=== PATIENT | female | born 2000 | race Caucasian/White ===

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

== ENCOUNTER 2022-01-24 08:50 | Emergency (ER) | payer MEDICAID ==
[~2022-01-24] VITALS: Ht 165.1 cm; Wt 70.3 kg
[~2022-01-24 08:50] MED LIST: ONDA-8 TL
[2022-01-24 09:52] VITALS: BP_SYST 138
[2022-01-24] MEDS ORDERED: HALOPERIDOL LACTATE 5 MG/ML VIAL IM ONE (14:45)
[2022-01-24 15:35] LABS: BASOPHILS % (AUTO) 0.1 % (0.0-2.0); HEMATOCRIT 38.1 % (36-48); HEMOGLOBIN 13.1 g/dL (12.0-16.0); LYMPHOCYTES # (AUTO) 0.4 K/uL (1.0-5.5); LYMPHOCYTES % (AUTO) 2.5 % (20.5-51.5); MEAN CORPUSCULAR HEMOGLOBIN 33 pg (27-31); MEAN CORPUSCULAR HGB CONC 34 % (32-36); MEAN CORPUSCULAR VOLUME 95 fL (79.0-98.0); MONOCYTES # (AUTO) 0.4 K/uL (0.0-1.0); MONOCYTES % (AUTO) 2.6 % (1.7-9.3); NEUTROPHILS # (AUTO) 14.1 K/uL (1.8-7.7); NEUTROPHILS % (AUTO) 94.8 % (40.0-70.0); PLATELET COUNT (AUTO) 270 K/uL (130-430); RED BLOOD CELL COUNT(AUTO) 4.03 MIL/uL (4.2-6.2); RED CELL DISTRIBUTION WIDTH 13.3 % (9.0-15.0); WHITE BLOOD COUNT (AUTO) 14.9 K/uL (4.5-11.0)
[2022-01-24 15:50] LABS: CALCIUM 9.3 mg/dL (8.4-11.0); CREATININE 0.78 mg/dL (0.55-1.30); POTASSIUM 3.8 mmol/L (3.5-5.1)
[2022-01-24 15:59] LABS: TOTAL BILIRUBIN 0.6 mg/dL (0.0-1.0)
[2022-01-24 16:00] LABS: ALBUMIN 3.7 g/dL (3.4-4.8)
[2022-01-24] MEDS ORDERED: METO-290 PO (17:12)
[2022-01-24] MEDS ORDERED: OMEP40CA20 PO (17:13)
--- NOTE | 2022-01-24 18:00 | NUR ---
Recieved Pt in [facility] [place] R/T marijuana overusage. Pt is aaox4, tired in appearance with red eyes and heavy eye lids. No signs of acute distress. Breathing is unlabored and even at this time.
--- NOTE | 2022-01-24 18:15 | NUR ---
Pt is with BS for MSE.
--- NOTE | 2022-01-24 19:30 | NUR ---
Patient given written and verbal discharge instructions and verbalizes understanding. ER MD discussed with patient the results and treatment provided. Patient in stable condition. ID arm band removed. Rx of Reglan and Omeprazole given. Patient educated cyclonic vomiting syndrome. Opportunity for questions provided and answered. Medication side effect fact sheet provided.
[2022-01-24 20:13] VITALS: BP_SYST 138
== END 2022-01-24 20:13 | disposition home or self-care (01) ==
LOC: SED 08:50
DX: R11.15 Cyclical vomiting syndrome unrelated to migraine (principal); Z79.899 Other long term (current) drug therapy
CPT/HCPCS: 99284; 74176; 80053; 82150; 84703; 83690; 85025; 86140; 36415; 76376; 96372; 83605; J1630

== ENCOUNTER 2022-03-10 21:55 | Inpatient (IN) | payer MEDICAID ==
[~2022-03-10] VITALS: Ht 165.1 cm; Wt 74.8 kg
[~2022-03-10 21:55] MED LIST changes: +METO-290 PO; +OMEP40CA20 PO
[2022-03-10 22:25] VITALS: BP_SYST 141
[2022-03-10] MEDS ORDERED: NACL 0.9% 1,000 ML IV ONE (22:45)
[2022-03-10] MEDS ORDERED: ONDANSETRON HCL 4 MG/2 ML VIAL IVP ONE (22:45)
[2022-03-10 23:45] LABS: BILIRUBIN,URINE NEGATIVE (NEGATIVE); BLOOD, URINE NEGATIVE (NEGATIVE); CLARITY/URINE CLEAR (CLEAR); COLOR,URINE YELLOW (YELLOW); GLUCOSE,URINE NEGATIVE (NEGATIVE); KETONES,URINE 2+ (NEGATIVE); LEUKOCYTE ESTERASE ,URINE NEGATIVE (NEGATIVE); NITRITE, URINE NEGATIVE (NEGATIVE); PH,URINE 8.5 (5.0-8.0); PROTEIN URINE 1+ (NEGATIVE)
[2022-03-11 00:03] LABS: BACTERIA,URINE RARE /HPF (None Seen); RBC,URINE NONE SEEN /HPF (0-3); WBC,URINE 0-3 /HPF (0-3)
[2022-03-11 00:04] LABS: MUCUS,URINE None Seen /LPF (None Seen)
[2022-03-11 00:07] LABS: BASOPHILS % (AUTO) 0.1 % (0.0-2.0); HEMATOCRIT 38.1 % (36-48); HEMOGLOBIN 13.3 g/dL (12.0-16.0); LYMPHOCYTES # (AUTO) 0.4 K/uL (1.0-5.5); LYMPHOCYTES % (AUTO) 2.6 % (20.5-51.5); MEAN CORPUSCULAR HEMOGLOBIN 33 pg (27-31); MEAN CORPUSCULAR HGB CONC 35 % (32-36); MEAN CORPUSCULAR VOLUME 94 fL (79.0-98.0); MONOCYTES # (AUTO) 0.2 K/uL (0.0-1.0); MONOCYTES % (AUTO) 1.8 % (1.7-9.3); NEUTROPHILS # (AUTO) 13.5 K/uL (1.8-7.7); NEUTROPHILS % (AUTO) 95.5 % (40.0-70.0); PLATELET COUNT (AUTO) 243 K/uL (130-430); RED BLOOD CELL COUNT(AUTO) 4.07 MIL/uL (4.2-6.2); RED CELL DISTRIBUTION WIDTH 13.1 % (9.0-15.0); WHITE BLOOD COUNT (AUTO) 14.1 K/uL (4.5-11.0)
[2022-03-11 00:19] LABS: CALCIUM 9.5 mg/dL (8.4-11.0); CREATININE 0.83 mg/dL (0.55-1.30); POTASSIUM 3.9 mmol/L (3.5-5.1)
[2022-03-11 00:25] LABS: ALBUMIN 4.5 g/dL (3.4-4.8); TOTAL BILIRUBIN 0.6 mg/dL (0.0-1.0)
[2022-03-11] MEDS ORDERED: ONDA-8 TL (01:29)
[2022-03-11] MEDS ORDERED: ONDANSETRON HCL 4 MG/2 ML VIAL IVP ONE (01:45)
[2022-03-11] MEDS ORDERED: NACL 0.9% 1,000 ML IV ONE (01:45)
--- NOTE | 2022-03-11 01:45 | NUR ---
recieved pt in bed c/0 cramping/ abdominal pain and vomitting. pt says she had diarrhea earlier vitals done.iv started, medicated as ordered.
--- NOTE | 2022-03-11 01:50 | NUR ---
covid test in the lab.IVF in progress .vitals are within normal range
--- NOTE | 2022-03-11 01:55 | NUR ---
medicated with zofran 4mg iv given for nausea. IVF in progress
[2022-03-11] MEDS ORDERED: ONDANSETRON HCL 4 MG/2 ML VIAL IVP PRN (02:00)
[2022-03-11] MEDS: D5/0.45 NS 1,000 ML IV SCH ×3 (02:25→18:11)
--- NOTE | 2022-03-11 06:52 | NUR ---
Admit bed requested Patient will be admitted to care of . Admitted to med surg unit. Diagnosis Gastroenteritis and dehydration Inpatient Yes Observation Yes Orientation concerns or request close to nursing station NO Covid Status NEG On vent or bipap NO Isolation requirements N/A Needs a sitter NO From Home Yes Requires Dialysis No Med Rec Completed Yes
--- NOTE | 2022-03-11 07:45 | NUR ---
SBAR GIVEN BEDSIDE TO [facility] ROOM 108C. PT AAOX4. VSS. ABLE TO AMBULATE TO BED. DENIES N/V AT THIS TIME. ALL QUESTIONS ANSWERED. END OF CARE.
--- NOTE | 2022-03-11 07:52 | NUR ---
CONSULTATION PAGED REASON FOR CONSULTATION GASTROENTITIS WAS CONSULT CALED?Y PERSON WHO WAS NOTIFIED:DELPHINE CONSULTING PHYSICIAN:TAWANDA SCHNEIDER (VIVEK DESOUZA PAID SEARCH MANAGER) WORKFORCE CONSULTANT SPECIALTY:GI WORKFORCE CONSULTANT PHONE NUMBER:[phone] REQUESTING PHYSICIAN:DUANE HAIRSTON
[2022-03-11 09:29] VITALS: BP_SYST 116
[2022-03-11 12:00] VITALS: BP_SYST 110
[2022-03-11 16:00] VITALS: BP_SYST 112
[2022-03-11 20:00] VITALS: BP_SYST 118
[2022-03-12] VITALS: BP_SYST 120
[2022-03-12] MEDS: D5/0.45 NS 1,000 ML IV SCH ×3 (02:00→18:00)
[2022-03-12 08:00] VITALS: BP_SYST 98
--- NOTE | 2022-03-12 08:30 | NUR ---
Report received from day shift RN for continuity of care. Patient in stable condition. No distress noted.
[2022-03-12 12:00] VITALS: BP_SYST 120
--- NOTE | 2022-03-12 12:33 | NUR ---
call placed for Dr. Zaldivar regarding orders and updates.
--- NOTE | 2022-03-12 13:12 | NUR ---
Spoke with Dr. Zaldivar regarding Dr. Redmond's recommendations. New orders noted and carried out.
[2022-03-12] MEDS ORDERED: MORPHINE 2 MG/ML INJ. SYRINGE ONE (13:44)
[2022-03-12] MEDS ORDERED: MORPHINE 2 MG/ML INJ. SYRINGE IVP PRN (13:45)
[2022-03-12] MEDS ORDERED: NALOXONE HCL 0.4 MG/ML AMP (NARCAN) IVP PRN ×2 (13:45→17:00)
--- NOTE | 2022-03-12 14:02 | NUR ---
Dr. Zaldivar made aware of patient having three episodes of intermittent vomiting in restroom and in bed. Patient feeling pain and nausea. Patient was observed to say, "I'm not feeling well!" New orders noted and carried out.
[2022-03-12 16:00] VITALS: BP_SYST 118
[2022-03-12] MEDS ORDERED: METOCLOPRAMIDE HCL 10 MG/2 ML VIAL IVP PRN (17:00)
[2022-03-12] MEDS ORDERED: MORPHINE 2 MG/ML INJ. SYRINGE IVP ONE (17:15)
[2022-03-12] MEDS ORDERED: cefTRIAXone 1 GM in D5W 50 ML IV SCH (18:00)
[2022-03-12 20:00] VITALS: BP_SYST 106
--- NOTE | 2022-03-12 20:04 | NUR ---
Report given to night patrol inspector RN for continuity of care. Patient in stable condition. No distress indicated.
[2022-03-13] VITALS: BP_SYST 116
[2022-03-13] MEDS: D5/0.45 NS 1,000 ML IV SCH ×2 (01:42→10:40)
[2022-03-13 08:00] VITALS: BP_SYST 108
[2022-03-13 12:09] VITALS: BP_SYST 109
[2022-03-13 14:24] VITALS: BP_SYST 120
--- NOTE | 2022-03-13 14:50 | NUR ---
Pt discharged to home. Education given. Pt verbalized understanding. stable at discharge.
[2022-03-13 15:46] VITALS: BP_SYST 117
== END 2022-03-13 15:30 | disposition home or self-care (01) | DRG 241 ==
LOC: SED 21:55 → SMU 03-11 01:41
PROVIDERS: ADMIT Internal Medicine; ATTEND Internal Medicine
DX: K29.70 Gastritis, unspecified, without bleeding (principal); R65.10 Systemic inflammatory response syndrome (SIRS) of non-infectious origin without acute organ dysfunction; K52.9 Noninfective gastroenteritis and colitis, unspecified; F12.129 Cannabis abuse with intoxication, unspecified; Z20.822 Contact with and (suspected) exposure to COVID-19; K31.84 Gastroparesis
CPT/HCPCS: 36415; 76376; 80053; 81000; 83605; 85025; 87040; 96374; 96376; 99285; J0696; J2270; J2405; J2765; J7060

== ENCOUNTER 2023-01-22 13:48 | Emergency (ER) | payer BC, MEDICAID ==
[~2023-01-22] VITALS: Ht 165.1 cm; Wt 70.3 kg
[2023-01-22 13:56] VITALS: BP_SYST 140; PULSE 96; RESP 18; TEMP 98.3; O2SAT 98
--- NOTE | 2023-01-22 15:15 | NUR ---
Pt brought by self, A&Ox4, pt presents to ER with R earache , L head and neck pain x 2 days, skin pink and warm, cap refill <3, VSS, respirations even and unlabored.
== END 2023-01-22 16:23 | disposition left against medical advice (07) ==
LOC: SED 13:48
DX: H92.01 Otalgia, right ear (principal); R51.9 Headache, unspecified; M54.2 Cervicalgia; Z53.21 Procedure and treatment not carried out due to patient leaving prior to being seen by health care provider
CPT/HCPCS: 81025; 99281

== ENCOUNTER 2024-03-05 21:58 | Emergency (ER) | payer BC ==
[~2024-03-05] VITALS: Ht 165.1 cm; Wt 56.7 kg
[2024-03-05 22:14] VITALS: BP_SYST 139; PULSE 91; RESP 16; TEMP 98.5; O2SAT 100
[2024-03-05] MEDS: NACL 0.9% 1,000 ML IV ONE (23:02)
[2024-03-05 23:18] LABS: BASOPHILS # (AUTO) 0.1 K/uL (0.0-0.2); BASOPHILS % (AUTO) 0.3 % (0.0-2.0); LYMPHOCYTES # (AUTO) 0.6 K/uL (1.0-5.5); LYMPHOCYTES % (AUTO) 2.4 % (20.5-51.5); MEAN CORPUSCULAR HEMOGLOBIN 32 pg (27-31); MEAN CORPUSCULAR HGB CONC 35 % (32-36); MEAN CORPUSCULAR VOLUME 92 fL (79.0-98.0); MONOCYTES # (AUTO) 0.4 K/uL (0.0-1.0); MONOCYTES % (AUTO) 1.7 % (1.7-9.3); NEUTROPHILS # (AUTO) 22.3 K/uL (1.8-7.7); NEUTROPHILS % (AUTO) 95.6 % (40.0-70.0); PLATELET COUNT (AUTO) 383 K/uL (130-430); RED BLOOD CELL COUNT(AUTO) 4.36 MIL/uL (4.2-6.2); RED CELL DISTRIBUTION WIDTH 12.5 % (9.0-15.0); WHITE BLOOD COUNT (AUTO) 23.3 K/uL (4.8-10.8)
[2024-03-05] MEDS: HALOPERIDOL LACTATE 5 MG/ML VIAL IVP ONE (23:21)
[2024-03-05] MEDS: ONDANSETRON HCL 4 MG/2 ML VIAL IVP ONE (23:21)
[2024-03-05 23:38] LABS: ALBUMIN 4.9 g/dL (3.4-4.8); BILIRUBIN,DIRECT 0.1 mg/dL (0.0-0.3); CALCIUM 9.9 mg/dL (8.4-11.0); CREATININE 1.05 mg/dL (0.55-1.30); POTASSIUM 3.2 mmol/L (3.5-5.1); TOTAL BILIRUBIN 0.4 mg/dL (0.0-1.0); TOTAL PROTEIN, SERUM 8.7 g/dL (6.4-8.3)
[2024-03-06 01:09] LABS: BILIRUBIN,URINE NEGATIVE (NEGATIVE); BLOOD, URINE NEGATIVE (NEGATIVE); CLARITY/URINE CLEAR (CLEAR); COLOR,URINE YELLOW (YELLOW); GLUCOSE,URINE NEGATIVE (NEGATIVE); KETONES,URINE 3+ (NEGATIVE); LEUKOCYTE ESTERASE ,URINE NEGATIVE (NEGATIVE); NITRITE, URINE NEGATIVE (NEGATIVE); PH,URINE 8.5 (5.0-8.0); PROTEIN URINE 1+ (NEGATIVE); UROBILINOGEN,URINE 0.2 (0.2-1.0)
[2024-03-06 01:25] LABS: BARBITURATE, URINE NEGATIVE (NEG <=200); BENZODIAZEPINE, URINE NEGATIVE (NEG <=150); CANNABINOID, URINE POSITIVE (NEG <=50); COCAINE, URINE POSITIVE (NEG <=150); METHAMPHETAMINES SCREEN,URINE NEGATIVE (NEG <=500); OPIATE, URINE NEGATIVE (NEG <=100); PHENCYCLIDINE SCREEN,URINE NEGATIVE (NEG <=25); UR TRICYCLIC ANTIDEPRESSANTS NEGATIVE (NEG <=300); URINE AMPHETAMINE NEGATIVE (NEG <=500); URINE METHADONE NEGATIVE (NEG <=200); URINE OXYCODONE SCREEN NEGATIVE (NEG <=100)
[2024-03-06 01:38] LABS: BACTERIA,URINE None Seen /HPF (None Seen)
[2024-03-06] MEDS: NACL 0.9% 1,000 ML IV ONE (01:56)
[2024-03-06] MEDS ORDERED: ONDA-8 TL (03:42)
[2024-03-06] MEDS ORDERED: PANT20TA2 PO (03:42)
[2024-03-06 04:31] VITALS: BP_SYST 118; PULSE 68; RESP 18; O2SAT 100
== END 2024-03-06 04:25 | disposition home or self-care (01) ==
LOC: SED 21:58
DX: R10.84 Generalized abdominal pain (principal); R11.10 Vomiting, unspecified; F14.10 Cocaine abuse, uncomplicated; Z79.899 Other long term (current) drug therapy; Z79.2 Long term (current) use of antibiotics
CPT/HCPCS: 99285; 96374; 96361 ×2; 96375; 80307; 80076; 80048; 83690; 85025; 36415; 93005; 81025; 81001; 74176; J1630; J2405; J7030 ×2; 81000; 81015